=== PATIENT | male | born 1965 | race Caucasian/White ===

== ENCOUNTER → 2021-03-18 | Day surgery (SDC) | payer BC ==
[2021-03-17 14:22] LABS: BASOPHILS # (AUTO) 0.1 (0.0-0.1); BASOPHILS % 0.9 % (0.0-1.0); EOSINOPHILS # (AUTO) 0.4 (0.0-0.4); EOSINOPHILS % 5.3 % (0.0-6.0); HEMATOCRIT 39.8 % (38.2-49.6); HEMOGLOBIN 13.6 g/dL (14.0-18.0); LYMPHOCYTES # (AUTO) 2.7 (1.0-3.2); LYMPHOCYTES % 35.7 % (18.0-39.1); MEAN CORPUSCULAR HEMOGLOBIN 29.6 pg (28-32); MEAN CORPUSCULAR HGB CONC 34.2 g/dL (31-35); MEAN CORPUSCULAR VOLUME 86.7 fL (81-99); MONOCYTES # (AUTO) 0.6 (0.2-0.8); MONOCYTES % 7.3 % (4.4-11.3); NEUTROPHILS # (AUTO) 3.8 (2.1-6.9); NEUTROPHILS % 50.5 % (38.7-80.0); PLATELET COUNT 360 x10e3/uL (140-360); RED BLOOD COUNT 4.59 x10e6/uL (4.3-5.7); RED CELL DISTRIBUTION WIDTH 13.1 % (11.7-14.4)
[2021-03-17 14:37] LABS: INR 0.92; PROTHROMBIN TIME 12.9 seconds (11.9-14.5)
[2021-03-17 14:47] LABS: ALBUMIN 4.3 g/dL (3.5-5.0); ALBUMIN/GLOBULIN RATIO 1.2 (0.8-2.0); ANION GAP 15.7 mmol/L (8-16); CALCIUM 9.3 mg/dL (8.4-10.2); CREATININE, SERUM 1.38 mg/dL (0.72-1.25); POTASSIUM 4.7 mmol/L (3.5-5.1)
[~2021-03-18] VITALS: Ht 170.2 cm; Wt 108.9 kg
[~2021-03-18] MED LIST: ALPRAZOLAM 0.5 MG TAB ONE; ASPIRIN EC81 MG PO; ATORVASTATIN CA20 MG PO; CYCLOBENZAPRINE5 MG PO; DIPHENHYDRAMINE HCL 25 MG CAP ONE; FENTANYL CITRATE/PF 100MCG/2 ML INJ ONE; FLOMAX0.4 MG PO; HEPARIN SOD/SOD CHLORIDE 2,000 ML ONE; HYDROCODON-ACE1 EAC9 PO; IOPAMIDOL 370 MG/ML 200 ML INFUS..BTL INJ ONE; LIDOCAINE HCL 2% LOCAL 20 ML VIAL ONE; LISINOPRIL10 MG PO; LOPID600 MG PO; METOPROLOL TART25 MG PO; MIDAZOLAM HCL 2 MG/2 ML VIAL ONE; MOBIC15 MG PO; NIACIN500 MG PO; OMEPRAZOLE40 MG PO; SODIUM CHLORIDE 0.9% 1000ML 1,000 ML ONE; VITAMIN D250 MC1 PO
[2021-03-18 14:00] VITALS: BP 132/82
== END | disposition home or self-care (01) ==
LOC: CATH LAB 01:32
PROVIDERS: ATTEND Internal Medicine Interventional Cardiology
DX: I25.119 Atherosclerotic heart disease of native coronary artery with unspecified angina pectoris (principal); I10 Essential (primary) hypertension; I25.2 Old myocardial infarction; R94.39 Abnormal result of other cardiovascular function study; I51.4 Myocarditis, unspecified; I73.9 Peripheral vascular disease, unspecified; F17.200 Nicotine dependence, unspecified, uncomplicated; Z01.812 Encounter for preprocedural laboratory examination; Z79.899 Other long term (current) drug therapy; Z79.82 Long term (current) use of aspirin
CPT/HCPCS: 36415; 76937; 80053; 83880; 85025; 85610; 93458; C1887; C1894; J2001; J2250; J3010; J7030; Q9967; 93454; 99152